=== PATIENT | female | born 1985 | race Caucasian/White ===

== ENCOUNTER 2020-10-28 12:59 | Emergency (ER) | payer OTHER, SELFPAY ==
--- NOTE | ~2020-10-28 | CT_ITS ---
EXAMINATION: CT ABDOMEN AND PELVIS WITH CONTRAST CLINICAL INFORMATION: Abdominal pain COMPARISON: Ultrasound earlier the same day TECHNIQUE: Multidetector volumetric images were obtained from the superior aspect of the liver through the pubic symphysis following administration 85 mL of Omnipaque 350 intravenous contrast. Sagittal and coronal reformatted images were obtained on the technologist's workstation. Oral contrast: No This CT examination was performed using dose optimization techniques as appropriate, variously including the following: *Automated exposure control *Adjustment of mA and/or kV according to patient size (this includes techniques or standardized protocols for targeted exams where dose is matched to indication/reason for exam; i.e. extremities or head) *Use of iterative reconstruction technique DLP: 705 mGy-cm FINDINGS: LUNG BASES: The visualized lung bases are unremarkable. LIVER, GALLBLADDER, AND BILIARY TREE: There is geographic hypodensity adjacent the fissure of the falciform ligament consistent with hepatic steatosis. No concerning focal liver lesion seen. No biliary ductal dilatation. The gallbladder is unremarkable with no evidence of radiopaque gallstones, gallbladder wall thickening, or obvious pericholecystic inflammatory changes. PANCREAS: Unremarkable. SPLEEN: Unremarkable. ADRENAL GLANDS: Unremarkable. KIDNEYS AND URETERS: The kidneys are normal in size, shape, and attenuation. No hydronephrosis, hydroureter, or calculi seen. No perinephric stranding. BLADDER: Unremarkable. GASTROINTESTINAL TRACT: The appendix is not seen but there are no right lower quadrant inflammatory changes. There is wall thickening of the distal transverse colon, for example coronal image 24/91. No evidence of diverticulitis. There is central mesenteric fluid with some matted loops of small bowel in the left anterior pelvis. There is intramesenteric fluid present. ABDOMINAL WALL: There is diastases of the rectus abdominis with a fat-containing umbilical hernia. LYMPH NODES: Normal sized retroperitoneal lymph nodes. No lymphadenopathy. VASCULAR: No aneurysm. PELVIC VISCERA: IUD seen centrally in the pelvis. There is a rim calcified 4 cm right fundal leiomyoma. Normal CT appearance of both ovaries. OSSEOUS STRUCTURES: Unremarkable. CT/CT abdomen pelvis w con IMPRESSION: There is a suggestion of wall thickening of the distal transverse colon. This could be due to underdistention although a colitis is possible. There is a small volume of intramesenteric fluid with the clustered appearance of small bowel in the left pelvis. The appearance is nonspecific. No evidence of bowel obstruction.
--- NOTE | ~2020-10-28 | US_ITS ---
EXAMINATION: US ABDOMEN COMPLETE CLINICAL INFORMATION: Abdominal pain right upper quadrant diffuse. COMPARISON: None TECHNIQUE: Real-time imaging of the abdominal viscera. FINDINGS: Region the pancreas is unremarkable. Distal body and tail are not seen. The proximal aorta and vena cava are within normal limits. Liver is felt to be within normal limits. No ductal dilatation. No lesion. The gallbladder shows some probable sludge or echogenic bile. No wall thickening or edema. Common duct is 3 mm nondilated. The right kidney is 10 cm and left kidney is 10 cm. There is no hydronephrosis. No stone. The spleen is 11.4 cm within normal limits. US/US abdomen complete IMPRESSION: Sludge or echogenic bile in the gallbladder. No evidence of edema. No ductal dilatation. No free fluid.
[2020-10-28 13:27] VITALS: BP 119/63; PULSE 96; RESP 16; TEMP 36.6; O2SAT 98; BMI 27.7
[2020-10-28 16:03] LABS: Glucose Urine UA NEG (NEG); Leukocyte Esterase Urine 1+ (NEG); Nitrite Urine NEG (NEG); Specific Gravity - Urine >= 1.030 (1.005-1.025); Urine Blood 3+ (NEG); Urine Ketones 5 MG/DL (NEG); Urine Protein 2+ MG/DL (NEG-TRACE)
[2020-10-28 16:05] LABS: UPreg QC Valid YES; Urine Pregnancy NEGATIVE (NEGATIVE)
[2020-10-28 16:06] LABS: Appearance Urine HAZY; Color Urine YELLOW
[2020-10-28 16:17] LABS: Squamous Epithelial Cell Urine 2+ /LPF; WBC Urine 30-49 /HPF (0-4)
--- NOTE | 2020-10-28 16:17 | ED_ITS ---
HPI - Abdominal Pain General Chief Complaint: Abdominal Pain Stated Complaint: ABD PAIN Time Seen by Provider: 10/28/20 16:12 Source: patient Mode of arrival: ambulatory Limitations: no limitations History of Present Illness HPI narrative: 35-year-old female who is a G2, status post 2 sections most recently 3 months ago during a healthy she is again 3 months she has overall been doing well she has a IUD in place as of 2 weeks ago states she was overall doing well and 6 days ago now developed right upper quadrant pain that is described as sharp and achy she subsequently was evaluated by her general practitioner had labs and ultrasound ordered however her pain got worse today prompting her to come to emergency room. States pain more in the right upper quadrant that is worse with p.o. intake and there is associated nausea but no vomiting. She also thought she might be a little constipated but 5 days ago she started MiraLax and has had normal bowel movements most recently this morning. Otherwise there is no recent travel sick contact. No chest pain or shortness of breath. No lower extremity swelling. No headache. MD elicited complaint: abdominal pain Onset (ago): day(s) Pain Consistency: intermittent Location: none Severity: moderate Quality: aching Migration to: no migration Exacerbating factors: eating Relieving factors: nothing Associated symptoms: denies other symptoms Related Data Previous Rx's Medication Instructions Recorded cephalexin 250 mg PO BID 7 Days #14 cap 10/28/20 Allergies Allergy/AdvReac Type Severity Reaction Status Date / Time penicillin G [PENICILLIN G] Allergy Mild HIVES Verified 10/28/20 19:02 Review of Systems Review of Systems Constitutional: No Weight loss, No Fever, No Chills, No Night Sweats, No Fatigue, No Malaise ENT/Mouth: No Hearing loss, No Ear Pain, No Nasal Congestion, No Sinus Pain, No Hoarseness, No sore throat, No Rhinorrhea, No Swallowing Difficulty Eyes: No Eye Pain, No Swelling, No Redness, No Foreign Body, No Discharge, No Vision Changes Cardiovascular: No Chest Pain, No SOB, No Dyspnea on Exertion, No Orthopnea, No Edema, No Palpitations Respiratory: No Cough, No Sputum, No Wheezing, No Smoke Exposure, No Dyspnea Gastrointestinal: + Nausea, No Vomiting, No Diarrhea, No Constipation, + abdominal Pain, No Hematochezia, No Melena Genitourinary: no irregular bleeding, No Dysuria, No Urinary Frequency, No Hematuria, No Urinary Incontinence, No Urgency, No Flank Pain, No Urinary Flow Changes, No Hesitancy Musculoskeletal: No joint pain, No Myalgias, No Joint Swelling Skin: No Skin Lesions, No rash Neuro: No Weakness, No Numbness, No Paresthesias, No Loss of Consciousness, No Dizziness, No Headache Psych: No Social Issues Heme/Lymph: No Bruising, No Bleeding,No Lymphadenopathy Endocrine: No Polyuria, No Polydipsia, No Temperature Intolerance Yes all other systems are reviewed and are negative Physical Exam Vital Signs: Vital Signs: Last Vital Signs Temp 97.3 F 10/28/20 18:59 Pulse 85 10/28/20 18:59 Resp 17 10/28/20 18:59 BP 131/73 10/28/20 18:59 Pulse Ox 99 10/28/20 18:59 Body Mass Index 27.7 Review Const: General: cooperative and healthy appearing; No acute distress or intoxicated appearing Nutritional Appearance: average body habitus O rientation/consciousness: patient oriented x3 HENMT: Head: Yes normal to inspection Ears: hearing grossly normal bilaterally Eyes: General: appearance normal, both eyes and all related structures Visual Chong: normal visual chong by confrontation Neck: Neck: Yes normal visual inspection, No positive Brudzinski's sign, No positive Kernig's sign and No tender Thyroid: Thyroid normal Chest: Chest palpation & inspection: normal inspection of the chest Resp: Effort & Inspection: normal respiratory effort Auscultation: clear to auscultation bilaterally Cardio: Jugular venous distension: no JVD Rhythm: regular rhythm Heart sounds: S1 normal heart sound present and S2 normal heart sound present GI: Inspection: Yes normal to inspection Palpation (GI): Tenderness to palpation present (GI) in the RUQ; not periumbilically and not suprapubicly Percussion: Yes normal to percussion Auscultation: normal bowel sounds : General: Yes no CVA tenderness Back/Spine/Pelvis: Back: no CVA tenderness Skin: General skin exam: no rashes or lesions noted Neuro: General: patient oriented x3 Extrem: General: Yes normal to inspection Course Reevaluation(s) Reevaluation #1: labs do very minimal elevation in AST at 32/ALT 51 and alk- phos 149 no previous to compare to. Otherwise labs stable. UA infected states she finished a course of Macrobid last week has history of UTI. Will start her on cephalexin p.o.. Ultrasound of the abdomen shows sludge/echogenic bile in the gallbladder. No evidence of edema, duct dilation or free fluid. Abdominal pelvis CT with IV contrast without significant abnormality. No evidence of obstruction. She is tolerating p.o. intake well. Component of reflux and musculoskeletal pain from breast feeding and having to hold baby with position. Will follow up on outpatient basis. Otherwise Exam is stable and stable for discharge. MDM - Abdominal Pain Differential Diagnosis Differential diagnosis: Likely abdominal pain and gastritis; Unlikely aortic dissection, acute appendicitis and bowel perforation Differential diagnosis narrative:: Cholelithiasis, acute cholecystitis, abdominal muscle strain, Abscess less likely. Lab Data Result diagrams: 10/28/20 16:33 10/28/20 16:33 Labs: Lab Results 10/28/20 10/28/20 10/28/20 Range/Units 15:43 15:43 16:33 WBC 11.6 H (4.8-10.8) X10*3/uL RBC 4.25 (4.20-5.50) X10*6/uL Hgb 13.3 (12.0-16.0) g/dl Hct 41.0 (37-47) % MCV 96.5 (80-98) fL MCH 31.3 (27.0-33.0) pg MCHC 32.4 (31.0-35.0) g/dl RDW 13.1 (11.0-16.0) % Plt Count 329 (160-400) X10*3/uL MPV 9.8 (9.4-12.3) fL Immature Gran % (Auto) 0.3 (0.0-0.4) % Neut % (Auto) 78.8 H (45-73) % Lymph % (Auto) 12.2 L (20-40) % [place] % (Auto) 7.3 (2-11) % Eos % (Auto) 1.1 (0-4) % Baso % (Auto) 0.3 (0-2) % Lymph # (Auto) 1.4 (1.2-4.9) X10*3/uL [place] # (Auto) 0.8 (0.1-1.2) X10*3/uL Eos # (Auto) 0.1 (0.0-0.4) X10*3/uL Baso # (Auto) 0.0 (0.0-0.2) X10*3/uL Abs Immat Gran (auto) 0.04 H (0.00-0.03) X10*3/uL Absolute Neuts (auto) 9.1 H (2.0-8.3) X10*3/uL Absolute Nucleated RBC 0.000 (0.0-0.012) X10*3/uL Nucleated RBC % (auto) 0.0 (0.0-0.2) /100WBC PT (10.8-13.0) SEC INR (0.9-1.1) APTT (24.1-38.0) SEC Sodium (135-145) mmol/L Potassium (3.3-5.1) mmol/L Chloride (96-108) mmol/L Carbon Dioxide (22-29) mmol/L Anion Gap (12-20) BUN (9-16) mg/dL Creatinine (0.5-1.4) mg/dL Estim Creat Clear Calc Estimated GFR Random Glucose (60-115) mg/dL Calcium (8.4-10.2) mg/dL Total Bilirubin (0.0-1.0) mg/dL AST (5-31) U/L ALT (0-31) U/L Alkaline Phosphatase (39-117) U/L Total Protein (6.5-8.0) g/dL Albumin (3.5-5.0) g/dL Urine Color YELLOW Urine Appearance HAZY Urine pH 6.0 (5.0-8.0) Ur Specific [place] >= 1.030 H (1.005-1.025) Urine Protein 2+ H (NEG-TRACE) MG/DL Urine Glucose (UA) NEG (NEG) MG/DL Urine Ketones 5 (NEG) MG/DL Urine Blood 3+ H (NEG) Urine Nitrite NEG (NEG) Ur Leukocyte Esterase 1+ H (NEG) Urine RBC 5-9 H (0) /HPF Urine WBC 30-49 H (0-4) /HPF Ur Squamous Epith Cells 2+ /LPF Uric Acid Crystals TRACE /LPF Urine Bacteria 2+ /LPF Urine Test NEGATIVE (NEGATIVE) 10/28/20 10/28/20 Range/Units 16:33 16:33 WBC (4.8-10.8) X10*3/uL RBC (4.20-5.50) X10*6/uL Hgb (12.0-16.0) g/dl Hct (37-47) % MCV (80-98) fL MCH (27.0-33.0) pg MCHC (31.0-35.0) g/dl RDW (11.0-16.0) % Plt Count (160-400) X10*3/uL MPV (9.4-12.3) fL Immature Gran % (Auto) (0.0-0.4) % Neut % (Auto) (45-73) % Lymph % (Auto) (20-40) % [place] % (Auto) (2-11) % Eos % (Auto) (0-4) % Baso % (Auto) (0-2) % Lymph # (Auto) (1.2-4.9) X10*3/uL [place] # (Auto) (0.1-1.2) X10*3/uL Eos # (Auto) (0.0-0.4) X10*3/uL Baso # (Auto) (0.0-0.2) X10*3/uL Abs Immat Gran (auto) (0.00-0.03) X10*3/uL Absolute Neuts (auto) (2.0-8.3) X10*3/uL Absolute Nucleated RBC (0.0-0.012) X10*3/uL Nucleated RBC % (auto) (0.0-0.2) /100WBC PT 13.5 H (10.8-13.0) SEC INR 1.1 (0.9-1.1) APTT 41.2 H (24.1-38.0) SEC Sodium 140 (135-145) mmol/L Potassium 4.0 (3.3-5.1) mmol/L Chloride 105 (96-108) mmol/L Carbon Dioxide 25 (22-29) mmol/L Anion Gap 14 (12-20) BUN 11 (9-16) mg/dL Creatinine 0.83 (0.5-1.4) mg/dL Estim Creat Clear Calc 98.8 Estimated GFR > 60 Random Glucose 78 (60-115) mg/dL Calcium 9.6 (8.4-10.2) mg/dL Total Bilirubin 0.6 (0.0-1.0) mg/dL AST 32 H (5-31) U/L ALT 51 H (0-31) U/L Alkaline Phosphatase 149 H (39-117) U/L Total Protein 7.6 (6.5-8.0) g/dL Albumin 4.3 (3.5-5.0) g/dL Urine Color Urine Appearance Urine pH (5.0-8.0) Ur Specific [place] (1.005-1.025) Urine Protein (NEG-TRACE) MG/DL Urine Glucose (UA) (NEG) MG/DL Urine Ketones (NEG) MG/DL Urine Blood (NEG) Urine Nitrite (NEG) Ur Leukocyte Esterase (NEG) Urine RBC (0) /HPF Urine WBC (0-4) /HPF Ur Squamous Epith Cells /LPF Uric Acid Crystals /LPF Urine Bacteria /LPF Urine Test (NEGATIVE) Discharge Plan Discharge Clinical Impression: Acute upper abdominal pain, Urinary tract infection Patient Disposition: Home, Self-Care Instructions: Urinary Tract Infection in Women (ED), Abdominal Pain (ED) Additional Instructions: bland diet Supportive care discussed Take medication as prescribed Follow-up instructed Return if any concerns or worsening symptoms Thank you [address] Scan ReportSigned Patient: Suze Carcamo#: [id number]: 1985Acct:[id number]/Sex: 35 / FADM Date: 10/28/20Loc: EDAttending Dr: Ordering Physician: Bong Mane NP Date of Service: 10/28/20 Procedure(s): CT abdomen pelvis w con Accession Number(s): [id number] cc: Bong Mane NP~ EXAMINATION: CT ABDOMEN AND PELVIS WITH CONTRAST CLINICAL INFORMATION: Abdominal pain COMPARISON: Ultrasound earlier the same day TECHNIQUE: Multidetector volumetric images were obtained from the superior aspect of the liver through the pubic symphysis following administration 85 mL of Omnipaque 350 intravenous contrast. Sagittal and coronal reformatted images were obtained on the technologist's workstation. Oral contrast: No This CT examination was performed using dose optimization techniques as appropriate, variously including the following: *Automated exposure control *Adjustment of mA and/or kV according to patient size (this includes techniques or standardized protocols for targeted exams where dose is matched to indication/reason for exam; i.e. extremities or head) *Use of iterative reconstruction technique DLP: 705 mGy-cm FINDINGS: LUNG BASES: The visualized lung bases are unremarkable. LIVER, GALLBLADDER, AND BILIARY TREE: There is geographic hypodensity adjacent the fissure of the falciform ligament consistent with hepatic steatosis. No concerning focal liver lesion seen. No biliary ductal dilatation. The gallbladder is unremarkable with no evidence of radiopaque gallstones, gallbladder wall thickening, or obvious pericholecystic inflammatory changes. PANCREAS: Unremarkable. SPLEEN: Unremarkable. ADRENAL GLANDS: Unremarkable. KIDNEYS AND URETERS: The kidneys are normal in size, shape, and attenuation. No hydronephrosis, hydroureter, or calculi seen. No perinephric stranding. BLADDER: Unremarkable. GASTROINTESTINAL TRACT: The appendix is not seen but there are no right lower quadrant inflammatory changes. There is wall thickening of the distal transverse colon, for example coronal image . No evidence of diverticulitis. There is central mesenteric fluid with some matted loops of small bowel in the left anterior pelvis. There is intramesenteric fluid present. ABDOMINAL WALL: There is diastases of the rectus abdominis with a fat-containing umbilical hernia. LYMPH NODES: Normal sized retroperitoneal lymph nodes. No lymphadenopathy. VASCULAR: No aneurysm. PELVIC VISCERA: IUD seen centrally in the pelvis. There is a rim calcified 4 cm right fundal leiomyoma. Normal CT appearance of both ovaries. OSSEOUS STRUCTURES: Unremarkable. CT/CT abdomen pelvis w con IMPRESSION: There is a suggestion of wall thickening of the distal transverse colon. This could be due to underdistention although a colitis is possible. There is a small volume of intramesenteric fluid with the clustered appearance of small bowel in the left pelvis. The appearance is nonspecific. No evidence of bowel obstruction. [facility] [place] [id number] ReportSigned Patient: Suze CarcamoMR#: [id number]: 1985Acct:[id number]/Sex: 35 / FADM Date: 10/28/20Loc: HO.EDAttending Dr: Ordering Physician: Bong Mane NP Date of Service: 10/28/20 Procedure(s): US abdomen complete Accession Number(s): [id number] cc: Bong Mane NP~ EXAMINATION: US ABDOMEN COMPLETE CLINICAL INFORMATION: Abdominal pain right upper quadrant diffuse. COMPARISON: None TECHNIQUE: Real-time imaging of the abdominal viscera. FINDINGS: Region the pancreas is unremarkable. Distal body and tail are not seen. The proximal aorta and vena cava are within normal limits. Liver is felt to be within normal limits. No ductal dilatation. No lesion. The gallbladder shows some probable sludge or echogenic bile. No wall thickening or edema. Common duct is 3 mm nondilated. The right kidney is 10 cm and left kidney is 10 cm. There is no hydronephrosis. No stone. The spleen is 11.4 cm within normal limits. US/US abdomen complete IMPRESSION: Sludge or echogenic bile in the gallbladder. No evidence of edema. No ductal dilatation. No free fluid. Dictated By:JAREK RODNEY MDSigned By:<Electronically signed by JAREK RODNEY MD in OV>10/28/20 1740 DD/ 1617TD/TT: Loom Changeover Operator: GT Prescriptions: New cephalexin 250 mg capsule 250 mg PO BID 7 Days Qty: 14 RF: 0 Referrals: ED Physician,Luis E [Physician] - 1 week Terrence Tariq MD [Physician] - 1 week Interventions: ED Discharge Assessment Last Done: 10/28/20 20:59 Discharge Date/Time: 10/28/20 20:45 [facility] Past Medical History Medical History delivery delivered No known health problems Social History Social History Alcohol intake: never Smoked in Last 30 Days: No Use of substances other than those prescribed or required for medical reasons: No Advance Directives: No Advance Directives Information Provided: No Patient : No
[2020-10-28 16:18] LABS: Bacteria Urine 2+ /LPF; Uric Acid Crystals Urine TRACE /LPF
[2020-10-28 16:37] LABS: MANUAL DIFF FLAG NO
[2020-10-28 16:43] LABS: Basophils Percent Auto 0.3 % (0-2); Eosinophils Absolute Auto 0.1 X10*3/uL (0.0-0.4); Eosinophils Percent Auto 1.1 % (0-4); Hemoglobin 13.3 g/dl (12.0-16.0); Imm Gran Abs Auto 0.04 X10*3/uL (0.00-0.03); Imm Gran Pct Auto 0.3 % (0.0-0.4); Lymphocytes Absolute Auto 1.4 X10*3/uL (1.2-4.9); Lymphocytes Percent Auto 12.2 % (20-40); Mean Corpuscular HGB Conc 32.4 g/dl (31.0-35.0); Mean Corpuscular Hemoglobin 31.3 pg (27.0-33.0); Mean Corpuscular Volume 96.5 fL (80-98); Mean Platelet Volume 9.8 fL (9.4-12.3); Monocytes Absolute Auto 0.8 X10*3/uL (0.1-1.2); Monocytes Percent Auto 7.3 % (2-11); Neutrophils Absolute Auto 9.1 X10*3/uL (2.0-8.3); Neutrophils Percent Auto 78.8 % (45-73); Platelet Count 329 X10*3/uL (160-400); Red Blood Count 4.25 X10*6/uL (4.20-5.50); Red Cell Distribution Width 13.1 % (11.0-16.0); White Blood Count 11.6 X10*3/uL (4.8-10.8)
[2020-10-28 16:48] LABS: INTERNATIONAL NORM RATIO 1.1 (0.9-1.1); Prothrombin Time 13.5 SEC (10.8-13.0)
[2020-10-28 16:51] LABS: Partial Thromboplastin Time 41.2 SEC (24.1-38.0)
[2020-10-28 17:12] LABS: Alanine Aminotransferase 51 U/L (0-31); Albumin Level 4.3 g/dL (3.5-5.0); Alkaline Phosphatase 149 U/L (39-117); Anion Gap 14 (12-20); Aspartate Amino Transferase 32 U/L (5-31); Bilirubin Total 0.6 mg/dL (0.0-1.0); Blood Urea Nitrogen 11 mg/dL (9-16); Calcium 9.6 mg/dL (8.4-10.2); Carbon Dioxide 25 mmol/L (22-29); Chloride 105 mmol/L (96-108); Creatinine Clr Calc Pharmacy 98.8; Estimated Glomerular Filt Rate > 60; Glucose Random 78 mg/dL (60-115); Sodium 140 mmol/L (135-145); Total Protein 7.6 g/dL (6.5-8.0)
[2020-10-28 18:59] VITALS: BP 131/73; PULSE 85; RESP 17; TEMP 36.3; O2SAT 99
[2020-10-28] MEDS: Acetaminophen 325 MG TABLET 650 MG PO (19:02)
[2020-10-28] MEDS: 0.9 % Sodium Chloride 1,000 ML 999 ML IV (19:02)
[2020-10-28] MEDS: iohexoL 350 MG/ML 100 ML INFUS..BTL 85 ML IV (19:05)
== END 2020-10-28 20:45 | disposition home or self-care (01) ==
PROVIDERS: Nurse Practitioner Primary Care; Emergency Provider Internal Medicine
DX: N39.0 Urinary tract infection, site not specified (principal); R10.11 Right upper quadrant pain; Z87.440 Personal history of urinary (tract) infections
CPT/HCPCS: 36415; 74177; 76700; 80053; 81001; 81003; 81025; 85025; 85610; 85730; 96360; 99284; 99285; Q9967